=== PATIENT | female | born 1985 | race Caucasian/White ===

== ENCOUNTER 2017-04-04 08:45 | Emergency (ER) | payer OTHER ==
[~2017-04-04] VITALS: Ht 175.3 cm; Wt 60.5 kg
[~2017-04-04 08:45] MED LIST: CLON0.1T PO; HYDR50TA76 PO
[2017-04-04 08:52] VITALS: BP 113/75; PULSE 90; RESP 20; O2SAT 98
--- NOTE | 2017-04-04 09:04 | ED.REPORT ---
HPI-General Illness Date of Service Apr 04, 2017 ED Provider: Magda Samayoa MD The patient is a 31 year old female with a hx of cirrhosis, paracentesis, and stroke presenting to the ED with her mother complaining of pain in the arch of her right foot that has been getting worse since she hurt her left leg a month an a half ago. She describes the pain as similar to a previous experience of plantar fasciitis. She claims that the pain is the worst during her first step of the day and when she walks. Secondary to the foot pain, the patient complains of headaches, right shoulder pain, stomach pain, nausea, diarrhea, and vomiting. She claims that the pain in her shoulder has been gradually worsening for the past two weeks. She says that she can't lift her shoulder very high or apply pressure to it. She denies fever, SOB, wheezing, or chills. The patient's last paracentesis was 1 week ago. Nursing Notes Stated Complaint: RIGHT LEG/SHOULDER PAIN/NAUSEA/VOMITING Chief Complaint: General Complaint Nursing Notes Reviewed: Yes Allergies: Coded Allergies: No Known Allergies (Unverified , 04/04/17) Scheduled Clonidine (Clonidine) 0.1 Mg Tablet 0.1 MG PO HS Scheduled PRN Hydroxyzine HCl (HydrOXYzine Hcl) 50 Mg Tablet 25 MG PO TID PRN PRN For Itching General Time Seen by MD: 09:10 Chief Complaint Other (pain in the arch of her right foot) Hx Obtained From: Patient Arrived By: Walk-in Sudden in Onset?: No Onset Occurred: More than a week ago... (3 weeks) Symptom Duration: Since onset Location: : Foot right Associated with: Reports: Abdominal pain, Headache, Nausea, Vomiting, Denies: Fever, Shortness of breath Pertinent Negative: Pt denies other symptoms Recent Healthcare: Recent doctor visit, Recent hospitalization Similar Sx Previous: Yes Past Medical History Past Medical History Cirrhosis Paracentesis stroke when she was 23 Smoking History Unknown if Ever Smoker Social History Breast augmentation in 2004 Ambulatory Status Independent Review of Systems Full Review of Systems Constitutional: Denies: Chills, Fever Respiratory: Denies: Shortness of breath, Wheezing GI: Reports: Abdominal pain, Diarrhea, Nausea, Vomiting Musculoskeletal: Reports: Extremity pain, Joint pain (right shoulder) Neurologic: Reports: Headache Complete sys rev & neg: except as marked. Physical Exam Vital Signs Vital Signs Date Time Temp Pulse Resp B/P Pulse Ox O2 Delivery O2 Flow Rate FiO2 04/04/17 14:17 92 19 99/54 98 Room Air 04/04/17 13:21 88 117/68 04/04/17 08:52 36.7 90 20 113/75 98 Room Air Initial VS: Reviewed, Vital signs normal General/Constitutional: Awake, Alert quite thin tense and tender due to distension Head / Eyes: Atraumatic jaundice scleral icterus Abdomen: Atraumatic significant ascites Bowel tones muffled by ascites Upper Extremities Upper Extremity / MS: Atraumatic, No erythema Right Shoulder: Positive: Tenderness present... (specifically tender at AC joint along bicepital and deltoid insertion) No warmth or pain with passive ROM at right shoulder Lower Extremity / Pelvis / MS: Atraumatic, No edema Ankle / Foot: Atraumatic Right Foot: Positive: Tenderness present... (at bottom of heel and plantar surface in arch; worse with flexing foot), Negative: Erythema present Skin: Atraumatic Color / Condition: Positive: Jaundice present multiple spider angiomas Interpretation & Diagnostics Lab Results Interpretation Result Diagram: 04/04/17 1000 04/04/17 1000 Test 04/04/17 10:00 04/04/17 10:36 White Blood Count 4.6th/mm3 (3.8-10.1) Red Blood Count 2.90mil/mm3 (3.90-5.20) Hemoglobin 10.1g/dL (12.0-15.6) Hematocrit 30.8% (35.0-46.0) Mean Corpuscular Volume 106.2fL (81-100) Mean Corpuscular Hemoglobin 34.8pg (27.0-35.0) Mean Corpuscular Hemoglobin Concent 32.8% (32.0-37.0) Red Cell Distribution Width 14.2% (12.3-15.4) Platelet Count 153bil/L (150-400) Neutrophils (%) (Auto) 68.6% (40-74) Lymphocytes (%) (Auto) 13.4% (14-46) Monocytes (%) (Auto) 14.7% (4-12) Eosinophils (%) (Auto) 2.2% (0-5) Basophils (%) (Auto) 0.9% (0-3) Prothrombin Time 12.6sec (8.1-12.5) Prothromb Time International Ratio 1.17ratio Activated Partial Thromboplast Time 29.3sec (22.8-33.0) Sodium Level 131mEq/L (134-144) Potassium Level 3.6mEq/L (3.5-5.2) Chloride Level 96mEq/L (97-108) Carbon Dioxide Level 23mmol/L (18-29) Blood Urea Nitrogen 11mg/dL (6-20) Creatinine 0.75mg/dL (0.57-1.00) Estimat Glomerular Filtration Rate 130mL/min (>59) Glucose Level 118mg/dL (60-99) Calcium Level 9.4mg/dL (8.5-10.1) Magnesium Level 1.8mg/dL (1.6-2.6) Total Bilirubin 5.2mg/dL (0.0-1.2) Aspartate Amino Transf (AST/SGOT) 56U/L (0-50) Alanine Aminotransferase (ALT/SGPT) 18U/L (0-32) Alkaline Phosphatase 203U/L (25-150) Total Protein 6.8g/dL (6.4-8.4) Albumin 2.9g/dL (3.4-5.0) Lipase 34U/L (13-60) Lactic Acid Level 1.4mmol/L (0.4-2.0) Ammonia 46ug/dL (18-53) Procedures Procedure Notes: Large volume paracentesis: Discussed with Dr. Melgoza, her GI provider Recommended full volume paracentesis with IV albumin to correct for volumes greater than 5L Verbal informed consent obtained Bedside ultrasound done to confirm large volume paracentesis and paracentesis site identified in the left lower quadrant 2 mL of lidocaine without epinephrine is used to anesthetize the area of interest Using standard sterile technique, paracentesis catheter is introduced into the peritoneum and clear yellow ascitic fluid is drained A total of 8200cc easily drained There were no complications due to the large volume anticipated patient was monitored throughout the procedure Procedure #2 Right shoulder bursitis no evidence infection or septic arthritis sterile technique anterior approach 40mg kenalog and 1cc lido symptomatic relief post procedure no complications Pericentesis 11:09 1% lido no epi Re-Eval/Medical Decision Med Decision/Clinical Course 31-year-old woman with cirrhosis presents for large volume paracentesis followed by albumin and also complaining of foot pain and shoulder pain. Over 8 L of ascitic fluid is removed without complication. She's given 25 g of albumin back. Tolerated procedure well without significant blood pressure shifts. Right shoulder was injected with 40 mg of Kenalog and lidocaine with some relief of pain. Will need follow-up with her PCP stable at time of discharge Time of Eval: 11:05 Re-Evaluation/Progress Note: Patient rechecked. Discussed the plan to use bedside US. Paracentesis performed. Time of Eval: 11:27 Re-Evaluation/Progress Note: Patient rechecked. Paracentesis catheter checked. Time of Eval: 11:41 Re-Evaluation/Progress Note: Patient rechecked. Discussed plan. Consultation : Referral / Consult Name: Ras Chua MD Call Returned at: 10:13 Primary Care Pediatrician: Agrees with plan Note: GI. Recommends paracentesis. Counseled Regarding: Diagnosis, Lab results, Need for follow-up, When/why to return to ED Discharge & Departure Primary Impression: Cirrhosis Additional Impressions: Ascites Bursitis of right shoulder Plantar fasciitis of right foot Additional Instructions: Your right foot pain is most likely due to plantar fasciitis. I am going to recommend you get some heel cushioning from one of the local grocery stores or pharmacies. You will likely benefit from physical therapy to help with the pain in the left leg. I suspect that the gait imbalance related to the left leg issues is what set off the problems in the right foot. You can also try using some bracing to keep your foot flexed while you're sleeping. your right shoulder likely has some bursitis. Clearly is not infected. It also does not seem to be related to pressure under the right side of the diaphragm from your ascites. You had a steroid injection into this right shoulder to see if that would offer some symptomatic relief and you'll need to follow-up with your primary care physician After speaking with Dr. Melgoza agreed to proceed with large volume paracentesis with albumin replacement for >5L of fluid removed Please follow up with Dr Melgoza about scheduled paracentesis to minimize discomfort and maximize outpatient resources. Please note, we are not always able to accomodate paracentesis like this in the ER. I hope you feel better! Referrals: Dominic Clifford MD (PCP) Ras Chua MD Attestation Portions of this note were transcribed by Florence Hummel and Ming Guzman. I, Dr. Samayoa personally performed the history, physical exam and medical decision -making; I reviewed and confirmed the accuracy of the information in the transcribed note. Signed by: Neil Roach, 04/04/2017 copies to: Ras Chua MD; Dominic Clifford MD, Shawna L MD Apr 04, 2017 09:04 Apr 04, 2017 09:22 FLORENCE HUMMEL Apr 04, 2017 10:43
[2017-04-04] MEDS ORDERED: Ondansetron 2 mg/mL 2 mL Inj IVPUSH ONE ×2 (09:55→13:25)
[2017-04-04 10:16] LABS: BASOPHILS % (AUTO) 0.9 % (0-3); EOSINOPHILS % (AUTO) 2.2 % (0-5); MONOCYTES % (AUTO) 14.7 % (4-12); Mean Corpuscular Hemoglobin 34.8 pg (27.0-35.0); Mean Corpuscular Volume 106.2 fL (81-100); NEUTROPHILS % (AUTO) 68.6 % (40-74); Platelet Count 153 bil/L (150-400)
[2017-04-04 10:25] LABS: INR 1.17 ratio
[2017-04-04 10:32] LABS: Magnesium 1.8 mg/dL (1.6-2.6)
[2017-04-04] MEDS ORDERED: Triamcinolone Acet 40 mg/mL 5 mL Inj INTRARTICU ONE (11:45)
[2017-04-04] MEDS ORDERED: Albumin 25% 25 GM in IV Premix 1 EACH IV ONE (12:10)
[2017-04-04 13:21] VITALS: BP 117/68; PULSE 88
[2017-04-04] MEDS ORDERED: LORazepam 0.5 mg Tablet PO ONE (13:25)
[2017-04-04 14:17] VITALS: BP 99/54; PULSE 92; RESP 19; O2SAT 98
[2017-04-16] MEDS ORDERED: BUPR-97 PO (16:53)
[2017-04-16] MEDS ORDERED: OMEP10CA4 PO (16:53)
[2017-04-16] MEDS ORDERED: TRAZ-115 PO (16:53)
[2017-04-16] MEDS ORDERED: URSO300C2 PO (16:53)
[2017-04-16] MEDS ORDERED: LACT10SO PO (16:53)
[2017-04-16] MEDS ORDERED: CIPR750T4 PO (16:53)
[2017-04-16] MEDS ORDERED: NALT50TA PO (16:53)
[2017-04-16] MEDS ORDERED: [UNRECOGNIZED DRUG - CODE] SUBCUTA079 (16:53)
[2017-04-16] MEDS ORDERED: ONDA4TAB9 PO (16:53)
[2017-04-16] MEDS ORDERED: SPIR25TA3 PO (16:53)
[2017-04-17] MEDS ORDERED: LORA0.5T PO (14:02)
[2017-04-17] MEDS ORDERED: CHOL200047 PO (14:02)
[2017-04-17] MEDS ORDERED: SPIR100T3 PO (14:02)
== END 2017-04-04 14:18 | disposition home or self-care (01) ==
LOC: SED 08:45
DX: K74.60 Unspecified cirrhosis of liver (principal); R18.8 Other ascites; M75.51 Bursitis of right shoulder; M72.2 Plantar fascial fibromatosis; R51 Headache; R19.7 Diarrhea, unspecified; Z87.19 Personal history of other diseases of the digestive system; Z86.73 Personal history of transient ischemic attack (TIA), and cerebral infarction without residual deficits
CPT/HCPCS: 20610; 36415; 49082; 80053; 82140; 83605; 83690; 83735; 85025; 85610; 85730; 87040; 96374; 96375; 96376; 99285; J1885; J2270; J2405; J3301; P9047